=== PATIENT | male | born 1980 | race Caucasian/White ===

== ENCOUNTER 2023-01-04 11:49 | Emergency (ER) | payer SELFPAY ==
[2023-01-04] MEDS ORDERED: Diphtheria,Pertussis(Acell),Tetanus Vaccine 0.5 ML Syringe IM ONE (12:06)
== END 2023-01-04 13:11 | disposition home or self-care (01) ==
LOC: MW.ED 11:49
DX: S01.111A Laceration without foreign body of right eyelid and periocular area, initial encounter (principal); Z88.6 Allergy status to analgesic agent; Z23 Encounter for immunization; V18.0XXA Pedal cycle driver injured in noncollision transport accident in nontraffic accident, initial encounter; Y93.55 Activity, bike riding
CPT/HCPCS: 12011; 12013; 90471; 90715; 99283; 99283-25